=== PATIENT | female | born 1985 | race Caucasian/White ===

== ENCOUNTER 2022-04-02 17:02 | Emergency (ER) | payer BC ==
[~2022-04-02] VITALS: Ht 170.2 cm; Wt 127.3 kg
[2022-04-02] MEDS ORDERED: METF-1211 PO (17:11)
[2022-04-02] MEDS ORDERED: DILT30TA4 PO (17:11)
[2022-04-02] MEDS ORDERED: DILT-92 PO (17:13)
[2022-04-02 19:51] LABS: BASOPHILS % (AUTO) 1.2 % (0.0-2.0); EOSINOPHILS % (AUTO) 2.2 % (1.0-6.0); HEMATOCRIT 41.8 % (36-46); HEMOGLOBIN 13.8 g/dL (12.0-16.0); LYMPHOCYTES # (AUTO) 2.9 K/uL (1.0-4.8); LYMPHOCYTES % (AUTO) 31.6 % (22.0-44.0); MEAN CORPUSCULAR HEMOGLOBIN 25.4 pg (26.0-34.0); MEAN CORPUSCULAR HGB CONC 32.9 G/dL (31.0-37.0); MEAN CORPUSCULAR VOLUME 77 fL (80-100); MONOCYTES # (AUTO) 0.4 K/uL (0.1-1.0); NEUTROPHILS # (AUTO) 5.7 K/uL (1.8-7.7); PLATELET COUNT (AUTO) 395 K/uL (150-450); RED BLOOD CELL COUNT(AUTO) 5.41 MIL/uL (4.00-5.20); RED CELL DISTRIBUTION WIDTH 15.2 % (11.5-14.5)
[2022-04-02 20:00] LABS: CARBON DIOXIDE 26 mmol/L (22-29); CHLORIDE 101 mmol/L (98-107); POTASSIUM 3.6 mmol/L (3.5-5.1); SODIUM SERUM 136 mmol/L (136-145)
[2022-04-02 20:01] LABS: ANION GAP 9 mmol/L (8-16); CALCIUM, TOTAL 8.8 mg/dL (8.8-10.5); CREATININE 0.75 mg/dL (0.60-1.30); GLOMERULAR FILTR. RATE CALC > 60 mL/min (>60); GLUCOSE,RANDOM 86 mg/dL (70-110); UREA NITROGEN, BLOOD 10 mg/dL (7-18)
[2022-04-02 20:04] LABS: PROTHROMBIN TIME 20.2 SEC (9.4-11.6)
[2022-04-02 20:10] LABS: ALANINE AMINOTRANSFERASE 24 U/L (12-78); ALBUMIN 3.5 g/dL (3.4-5.0); ALKALINE PHOSPHATASE 109 U/L (46-116); ASPARTATE AMINOTRANSFERASE 14 U/L (15-37); BILIRUBIN,TOTAL 0.2 mg/dL (0.1-1.0); CREATINE KINASE, TOTAL ONLY 70 U/L (26-192); TOTAL PROTEIN, SERUM 7.9 g/dL (6.4-8.2)
[2022-04-02 20:11] LABS: B-TYPE NATRIURETIC PEPTIDE 9 pg/mL (0-100)
[2022-04-02 20:43] VITALS: BP 125/69
== END 2022-04-02 21:52 | disposition home or self-care (01) ==
LOC: EMS 17:03
DX: R00.2 Palpitations (principal); I48.91 Unspecified atrial fibrillation; E28.2 Polycystic ovarian syndrome; Z98.890 Other specified postprocedural states
CPT/HCPCS: 71045; 80053; 82550; 83880; 84484; 85025; 85610; 85730; 93005; 99285; 36415-L1; 36415-TC